=== PATIENT | male | born 1955 | race Caucasian/White ===

== ENCOUNTER → 2024-02-13 | Outpatient (CLI) | payer MEDICARE ==
[2024-02-13 17:23] LABS: Microalb/Creat Ratio UR, Rand 9.832 mg/g (0.000-30.000); Microalbumin, Random Urine 11.7 mg/L (0.000-20.000)
== END | disposition home or self-care (01) ==
LOC: LAB SHORT 13:19 → LAB 13:19
PROVIDERS: Internal Medicine
DX: I1A.0 Resistant hypertension (principal)
CPT/HCPCS: 82043; 82570

== ENCOUNTER → 2024-02-16 | Outpatient (CLI) | payer MEDICARE ==
[2024-02-19 14:36] LABS: CREATININE,URINE - PER 24H 2112 mg/d (800-2100); CREATININE,URINE - PER VOLUME 88 mg/dL; DOPAMINE,URINE - PER 24H 379 ug/d (71-485); DOPAMINE,URINE - PER VOLUME 158 ug/L; DOPAMINE,URINE - RATIO TO CRT 180 ug/g CRT (0-250); EPINEPHRINE,URINE - PER 24H 19 ug/d (1-14); EPINEPHRINE,URINE - PER VOLUME 8 ug/L; EPINEPHRINE,URN - RATIO TO CRT 9 ug/g CRT (0-20); HOURS COLLECTED 24 hr; NOREPINEPHRINE,UR - PER VOLUME 63 ug/L; NOREPINEPHRINE,URINE - PER 24H 151 ug/d (14-120); NOREPINEPHRINE,URN/CRT RATIO 72 ug/g CRT (0-45); TOTAL VOLUME 2400 mL
[2024-02-20 01:44] LABS: CREATININE,URINE - PER 24H 2112 mg/d (800-2100); CREATININE,URINE - PER VOLUME 88 mg/dL; HOURS COLLECTED 24 hr; METANEPHRINE,UR - RATIO TO CRT 105 ug/g CRT (0-300); METANEPHRINE,URINE - PER 24H 221 ug/d (55-320); METANEPHRINE,URN - PER VOLUME 92 ug/L; NORMETANEPHRINE,U - PER VOLUME 285 ug/L; NORMETANEPHRINE,URN - PER 24H 684 ug/d (114-865); NORMETANEPHRINE,URN/CRT RATIO 324 ug/g CRT (0-400); TOTAL VOLUME 2400 mL
[2024-02-20 05:49] LABS: CORTISOL,U FREE - RATIO TO CRT 16.36 ug/g CRT; CORTISOL,URINE FREE - PER 24H 34.6 ug/d (<=60.0); CREATININE,URINE - PER 24H 2112 mg/d (800-2100); CREATININE,URINE - PER VOLUME 88 mg/dL; HOURS COLLECTED 24 hr; TOTAL VOLUME 2400 mL
== END | disposition home or self-care (01) ==
LOC: LAB SHORT 10:24 → LAB 10:24
PROVIDERS: Internal Medicine
DX: I1A.0 Resistant hypertension (principal)
CPT/HCPCS: 81050; 82384; 82530; 83835

== ENCOUNTER → 2025-03-17 | Outpatient (CLI) | payer MEDICARE ==
[2025-03-19 14:31] LABS: HSV SUBTYPE SOURCE RT ARMPIT
[2025-03-20 13:40] LABS: VARICELLA-ZOSTER VIRUS BY PCR Detected; VARICELLA-ZOSTER VIRUS SOURCE Lesion Swab
== END ==
LOC: LAB SHORT 15:47 → LAB 15:47
PROVIDERS: Family Medicine
DX: R21 Rash and other nonspecific skin eruption (principal)
CPT/HCPCS: 87529; 87798